=== PATIENT | female | born 1960 | race African-American/Black ===

== ENCOUNTER 2018-09-05 09:15 | Emergency (ER) | payer SELFPAY ==
[2018-09-05 09:36] LABS: #Eosinphils 0.1 thou/uL (0.0-0.7); #Lymphocytes 1.6 thou/uL (1.20-3.40); #Monocytes 0.4 thou/uL (0.11-0.59); #Neutrophils 5.4 thou/uL (1.40-6.50); %Eosinophils 0.8 % (0.0-10.0); %Lymphocytes 21.5 % (21.0-51.0); %Monocytes 5.4 % (0.0-10.0); %Neutrophils 72.4 % (42.0-75.0); Hemoglobin 10.1 g/dL (12.0-16.0); Mean Corpuscular HGB CONC 33.5 g/dL (32.0-36.0); Mean Corpuscular Hemoglobin 29.5 pg (27.0-31.0); Mean Corpuscular Volume 88.1 fL (78.0-98.0); Mean Platelet Volume 8.1 fL (7.4-10.4); Platelet Count 333 thou/uL (130-400); RBC Distribution Width 11.7 % (11.5-14.5); Red Blood Cell (RBC) Count 3.43 mill/uL (4.20-5.40); White Blood Cell (WBC) Count 7.4 thou/uL (4.8-10.8)
[2018-09-05 09:45] LABS: Base Excess-Venous -1.1 mmol/L (-2.0 to 3.0); Bicarbonate (HCO3v) 24.7 mmol/L (22.0-28.0); CO2 Tension (PvCO2) 44.4 mmHg (40.0-50.0); Calcium, Ionized 1.13 mmol/L (See Comments:); Chloride 96 mmol/L (98-107); Hemoglobin - Calc 10.8 g/dL (12.0-16.0); Potassium 3.9 mmol/L (3.5-5.1); Sodium 134 mmol/L (138-145); vO2 Saturation-calc 83.8 % (60.0-85.0)
[2018-09-05 09:59] LABS: Magnesium 1.9 mg/dL (1.6-2.6); Phosphorus 2.9 mg/dL (2.3-4.7)
[2018-09-05 10:05] LABS: ALT (SGPT) 13 U/L (8-55); AST (SGOT) 8 U/L (5-34); Albumin 3.8 g/dL (3.5-5.0); Alkaline Phosphatase 127 U/L (40-150); Anion Gap 15 mmol/L (10-20); BUN (Urea Nitrogen) 19 mg/dL (9.8-20.1); Bilirubin, Total 0.3 mg/dL (0.2-1.2); Calc. Creatinine Clearance 0 mL/min (70-130); Calcium 9.1 mg/dL (7.8-10.44); Carbon Dioxide 23 mmol/L (22-29); Chloride 99 mmol/L (98-107); Estimated GFR-MDRD 56; Globulin 2.9 g/dL (2.4-3.5); Potassium 4.1 mmol/L (3.5-5.1); Protein, Total 6.7 g/dL (6.0-8.3); Sodium 133 mmol/L (136-145)
[2018-09-05 10:11] LABS: Glucose 584 mg/dL (70-105)
[2018-09-05] MEDS ORDERED: Insulin Regular 300 UNITS/3 ML VIAL ONE (10:25)
== END 2018-09-05 12:00 | disposition home or self-care (01) ==
LOC: ERS 09:15
DX: E11.65 Type 2 diabetes mellitus with hyperglycemia (principal); I10 Essential (primary) hypertension; F31.9 Bipolar disorder, unspecified; F20.9 Schizophrenia, unspecified; Z87.891 Personal history of nicotine dependence; Z79.899 Other long term (current) drug therapy; Z79.84 Long term (current) use of oral hypoglycemic drugs
CPT/HCPCS: 36415; 36416; 80053; 82010; 82330; 82803; 83735; 84100; 85025; 96361; 96374; J1815

== ENCOUNTER 2018-09-05 20:38 | Emergency (ER) | payer SELFPAY ==
[2018-09-06 01:44] LABS: #Eosinphils 0.1 thou/uL (0.0-0.7); #Lymphocytes 2.7 thou/uL (1.20-3.40); #Monocytes 0.5 thou/uL (0.11-0.59); #Neutrophils 6.7 thou/uL (1.40-6.50); %Basophils 0.3 % (0.0-1.0); %Eosinophils 0.9 % (0.0-10.0); %Lymphocytes 26.8 % (21.0-51.0); %Monocytes 4.9 % (0.0-10.0); %Neutrophils 67.1 % (42.0-75.0); Hemoglobin 10.7 g/dL (12.0-16.0); Mean Corpuscular HGB CONC 33.6 g/dL (32.0-36.0); Mean Corpuscular Hemoglobin 29.6 pg (27.0-31.0); Mean Platelet Volume 8.4 fL (7.4-10.4); Platelet Count 397 thou/uL (130-400); RBC Distribution Width 11.8 % (11.5-14.5); Red Blood Cell (RBC) Count 3.63 mill/uL (4.20-5.40)
[2018-09-06 02:04] LABS: ALT (SGPT) 15 U/L (8-55); AST (SGOT) 9 U/L (5-34); Albumin 4.2 g/dL (3.5-5.0); Alkaline Phosphatase 139 U/L (40-150); Anion Gap 15 mmol/L (10-20); BUN (Urea Nitrogen) 17 mg/dL (9.8-20.1); Bilirubin, Total 0.3 mg/dL (0.2-1.2); Calc. Creatinine Clearance 0 mL/min (70-130); Calcium 9.8 mg/dL (7.8-10.44); Carbon Dioxide 25 mmol/L (22-29); Chloride 101 mmol/L (98-107); Estimated GFR-MDRD 69; Globulin 3.7 g/dL (2.4-3.5); Glucose 476 mg/dL (70-105); Potassium 3.8 mmol/L (3.5-5.1); Protein, Total 7.9 g/dL (6.0-8.3); Sodium 137 mmol/L (136-145)
== END 2018-09-06 02:29 | disposition home or self-care (01) ==
LOC: ERS 20:38
DX: E11.65 Type 2 diabetes mellitus with hyperglycemia (principal); F31.9 Bipolar disorder, unspecified; F20.9 Schizophrenia, unspecified; Z87.891 Personal history of nicotine dependence
CPT/HCPCS: 36415; 36416; 80053; 85025; 99284

== ENCOUNTER 2018-09-10 12:51 | Emergency (ER) | payer SELFPAY ==
[2018-09-10 14:43] LABS: #Lymphocytes 2.4 thou/uL (1.20-3.40); #Monocytes 0.6 thou/uL (0.11-0.59); #Neutrophils 8.9 thou/uL (1.40-6.50); %Basophils 0.4 % (0.0-1.0); %Eosinophils 0.2 % (0.0-10.0); %Lymphocytes 19.8 % (21.0-51.0); %Monocytes 5.3 % (0.0-10.0); %Neutrophils 74.3 % (42.0-75.0); Mean Corpuscular HGB CONC 34.1 g/dL (32.0-36.0); Mean Corpuscular Hemoglobin 29.5 pg (27.0-31.0); Mean Corpuscular Volume 86.4 fL (78.0-98.0); Mean Platelet Volume 8.7 fL (7.4-10.4); Platelet Count 372 thou/uL (130-400); RBC Distribution Width 11.9 % (11.5-14.5); Red Blood Cell (RBC) Count 3.38 mill/uL (4.20-5.40); White Blood Cell (WBC) Count 11.9 thou/uL (4.8-10.8)
[2018-09-10 14:46] LABS: Base Excess-Venous -0.8 mmol/L (-2.0 to 3.0); Bicarbonate (HCO3v) 23.4 mmol/L (22.0-28.0); CO2 Tension (PvCO2) 36.2 mmHg (40.0-50.0); Calcium, Ionized 1.03 mmol/L (See Comments:); Chloride 97 mmol/L (98-107); Hemoglobin - Calc 10.5 g/dL (12.0-16.0); Potassium 4.1 mmol/L (3.5-5.1); Sodium 132 mmol/L (138-145); T. Carbon Dioxide 24.5 mmol/L (22.0-28.0); vO2 Saturation-calc 88.2 % (60.0-85.0)
[2018-09-10] MEDS ORDERED: Ketorolac Tromethamine 30 MG/ML VIAL ONE (14:55)
[2018-09-10 15:05] LABS: ALT (SGPT) 12 U/L (8-55); AST (SGOT) 11 U/L (5-34); Albumin 3.9 g/dL (3.5-5.0); Alkaline Phosphatase 111 U/L (40-150); Anion Gap 20 mmol/L (10-20); BUN (Urea Nitrogen) 32 mg/dL (9.8-20.1); Bilirubin, Total 0.4 mg/dL (0.2-1.2); CK (CPK) 76 U/L (29-168); Calc. Creatinine Clearance 0 mL/min (70-130); Calcium 9.3 mg/dL (7.8-10.44); Carbon Dioxide 21 mmol/L (22-29); Chloride 96 mmol/L (98-107); Estimated GFR-MDRD 43; Globulin 3.5 g/dL (2.4-3.5); Glucose 458 mg/dL (70-105); Protein, Total 7.4 g/dL (6.0-8.3); Sodium 133 mmol/L (136-145)
[2018-09-10 16:03] LABS: Bilirubin Negative (Negative); Blood, Urine Negative (Negative); Clarity Clear (Clear); Glucose, Urine (Dipstick) 500 mg/dL (Negative); Leukocyte 250 Leu/uL (Negative); Nitrite Negative (Negative); Protein, Urine (Dipstick) Negative (Neg-Trace); RBC/HPF 0-3 HPF (0-3); Squamous Epithelial 0-3 HPF (0-3); Urobilinogen Normal mg/dL (Less than 2)
[2018-09-10 16:04] LABS: Bacteria/HPF None Seen HPF (None Seen); Renal Epithelial 0-3 HPF (None Seen); Transitional Epithelial 0-3 HPF (None Seen)
[2018-09-10 16:12] LABS: Amphetamine Not Detected (NotDetected); Barbiturates Screen Not Detected (NotDetected); Benzodiazepine Screen Detected (NotDetected); Cocaine Metabolite Screen Not Detected (NotDetected); Medtox Control Line Valid? VALID (VALID); Medtox Reader # READER 4; Methadone Not Detected (NotDetected); Methamphetamine Not Detected (NotDetected); Opiate Screen Not Detected (NotDetected); Oxycodone Screen Not Detected (NotDetected); Phencyclidine (PCP) Not Detected (NotDetected); THC/Cannabinoid Screen Not Detected (NotDetected); Tricyclic Screen Not Detected (NotDetected)
[2018-09-10] MEDS ORDERED: Insulin Regular 300 UNITS/3 ML VIAL ONE (16:53)
== END 2018-09-10 18:36 | disposition home or self-care (01) ==
LOC: ERS 12:51
DX: E11.65 Type 2 diabetes mellitus with hyperglycemia (principal); R51 Headache; I10 Essential (primary) hypertension; E78.00 Pure hypercholesterolemia, unspecified; J44.9 Chronic obstructive pulmonary disease, unspecified; F31.9 Bipolar disorder, unspecified; F20.9 Schizophrenia, unspecified; Z87.891 Personal history of nicotine dependence
CPT/HCPCS: 36416; 80053; 80306; 81003; 81015; 82330; 82550; 82803; 83930; 84484; 85025; 87086; 93005; 96361; 96374; 96375; J1815; J1885

== ENCOUNTER 2018-09-14 11:48 | Emergency (ER) | payer SELFPAY ==
[2018-09-14] MEDS ORDERED: Ketorolac Tromethamine 30 MG/ML VIAL ONE (13:12)
[2018-09-14 13:20] LABS: #Lymphocytes 2.8 thou/uL (1.20-3.40); #Monocytes 0.6 thou/uL (0.11-0.59); #Neutrophils 8.2 thou/uL (1.40-6.50); %Basophils 0.2 % (0.0-1.0); %Eosinophils 0.4 % (0.0-10.0); %Monocytes 4.9 % (0.0-10.0); %Neutrophils 70.4 % (42.0-75.0); Hemoglobin 9.7 g/dL (12.0-16.0); Mean Corpuscular HGB CONC 32.2 g/dL (32.0-36.0); Mean Corpuscular Volume 86.9 fL (78.0-98.0); Mean Platelet Volume 8.2 fL (7.4-10.4); Platelet Count 375 thou/uL (130-400); RBC Distribution Width 11.8 % (11.5-14.5); Red Blood Cell (RBC) Count 3.45 mill/uL (4.20-5.40); White Blood Cell (WBC) Count 11.7 thou/uL (4.8-10.8)
[2018-09-14 13:40] LABS: ALT (SGPT) 14 U/L (8-55); AST (SGOT) 13 U/L (5-34); Albumin 4.1 g/dL (3.5-5.0); Alkaline Phosphatase 109 U/L (40-150); Anion Gap 17 mmol/L (10-20); BUN (Urea Nitrogen) 25 mg/dL (9.8-20.1); Bilirubin, Total 0.4 mg/dL (0.2-1.2); CK (CPK) 106 U/L (29-168); Calc. Creatinine Clearance 0 mL/min (70-130); Calcium 9.9 mg/dL (7.8-10.44); Carbon Dioxide 25 mmol/L (22-29); Chloride 99 mmol/L (98-107); Estimated GFR-MDRD 56; Globulin 3.5 g/dL (2.4-3.5); Glucose 183 mg/dL (70-105); Lipase 24 U/L (8-78); Potassium 3.6 mmol/L (3.5-5.1); Protein, Total 7.6 g/dL (6.0-8.3); Sodium 137 mmol/L (136-145)
== END 2018-09-14 14:39 | disposition home or self-care (01) ==
LOC: ERS 11:48
DX: E11.65 Type 2 diabetes mellitus with hyperglycemia (principal); R42 Dizziness and giddiness; I10 Essential (primary) hypertension; J44.9 Chronic obstructive pulmonary disease, unspecified; E78.00 Pure hypercholesterolemia, unspecified; F31.9 Bipolar disorder, unspecified; F20.9 Schizophrenia, unspecified; Z87.891 Personal history of nicotine dependence; Z79.899 Other long term (current) drug therapy; Z79.82 Long term (current) use of aspirin; Z79.84 Long term (current) use of oral hypoglycemic drugs
CPT/HCPCS: 36416; 80053; 82550; 83690; 83930; 85025; 93005; 96374; J1885

== ENCOUNTER 2019-09-08 13:30 | Observation (INO) | payer SELFPAY ==
--- NOTE | 2019-09-08 14:07 | RAD ---
XR Chest 1 View Portable HISTORY: Chest pain COMPARISON: None FINDINGS: The heart size is enlarged. The lungs are well expanded without focal areas of consolidatio n, pneumothorax or pleural effusions. There are degenerative changes in the spine. IMPRESSION: Cardiomegaly
[2019-09-08 14:19] LABS: #Basophils 0.1 thou/uL (0.0-0.2); #Eosinphils 0.1 thou/uL (0.0-0.7); #Lymphocytes 2.1 thou/uL (1.20-3.40); #Monocytes 0.7 thou/uL (0.11-0.59); #Neutrophils 4.1 thou/uL (1.40-6.50); %Basophils 0.7 % (0.0-1.0); %Eosinophils 0.8 % (0.0-10.0); %Lymphocytes 29.6 % (21.0-51.0); %Monocytes 9.9 % (0.0-10.0); %Neutrophils 58.9 % (42.0-75.0); Hemoglobin 10.5 g/dL (12.0-16.0); Mean Corpuscular HGB CONC 33.9 g/dL (32.0-36.0); Mean Corpuscular Hemoglobin 30.9 pg (27.0-31.0); Mean Corpuscular Volume 91.1 fL (78.0-98.0); Mean Platelet Volume 7.9 fL (7.4-10.4); Platelet Count 296 thou/uL (130-400); RBC Distribution Width 11.8 % (11.5-14.5); Red Blood Cell (RBC) Count 3.41 mill/uL (4.20-5.40)
[2019-09-08 14:41] LABS: Anion Gap 16 mmol/L (10-20); BUN (Urea Nitrogen) 19 mg/dL (9.8-20.1); Calc. Creatinine Clearance 0 mL/min (70-130); Calcium 8.8 mg/dL (7.8-10.44); Carbon Dioxide 22 mmol/L (22-29); Chloride 105 mmol/L (98-107); Estimated GFR-MDRD 82; Glucose 117 mg/dL (70-105); Potassium 3.5 mmol/L (3.5-5.1); Sodium 139 mmol/L (136-145)
[2019-09-08 14:42] LABS: ALT (SGPT) 18 U/L (8-55); AST (SGOT) 14 U/L (5-34); Alkaline Phosphatase 92 U/L (40-110); Bilirubin, Total 0.3 mg/dL (0.2-1.2)
[2019-09-08 15:39] LABS: Bilirubin Negative (Negative); Blood, Urine Negative (Negative); Glucose, Urine (Dipstick) Negative (Negative); Ketone, Urine Negative (Negative); Leukocyte Trace (Negative); Nitrite Negative (Negative); Protein, Urine (Dipstick) Negative (Neg-Trace); Urobilinogen 0.2 mg/dL (Less than 2); pH, Urine 5.5 (5.0-9.0)
[2019-09-08 15:40] LABS: Clarity Clear (Clear)
[2019-09-08 15:53] LABS: Bacteria/HPF None Seen HPF (None Seen); RBC/HPF 0-3 HPF (0-3); WBC/HPF 0-3 HPF (0-3)
[2019-09-08 16:59] LABS: Magnesium 1.9 mg/dL (1.6-2.6)
[2019-09-08 17:34] VITALS: BMI 30.5
[2019-09-08 17:36] LABS: Troponin I 0.016 ng/mL (< 0.028)
[2019-09-08] MEDS ORDERED: HumaLOG 300 UNITS/3 ML VIAL SC PRN ×2 (17:45)
[2019-09-08] MEDS ORDERED: Dextrose 50% Abboject 50 ML SYRINGE SLOW IVP PRN (17:45)
[2019-09-08] MEDS ORDERED: Dextrose 5% in Water 1,000 ML IV PRN (17:45)
[2019-09-08 18:13] LABS: Amphetamine Not Detected (NotDetected); Barbiturates Screen Not Detected (NotDetected); Benzodiazepine Screen Not Detected (NotDetected); Cocaine Metabolite Screen Not Detected (NotDetected); Medtox Control Line Valid? VALID (VALID); Medtox Reader # READER 4; Methadone Not Detected (NotDetected); Methamphetamine Not Detected (NotDetected); Opiate Screen Not Detected (NotDetected); Oxycodone Screen Not Detected (NotDetected); Phencyclidine (PCP) Not Detected (NotDetected); THC/Cannabinoid Screen Not Detected (NotDetected); Tricyclic Screen Not Detected (NotDetected)
[2019-09-08] MEDS: Metoprolol Tartrate 25 MG TAB PO SCH (20:44)
[2019-09-08] MEDS: levETIRAcetam 500 MG TAB PO SCH (20:44)
[2019-09-08] MEDS: risperiDONE 1 MG TAB PO SCH (20:46)
[2019-09-08] MEDS ORDERED: Atorvastatin Calcium 20 MG TAB PO SCH (21:00)
[2019-09-08 21:15] LABS: Troponin I 0.021 ng/mL (< 0.028)
[2019-09-08] MEDS: Acetaminophen 500 MG TAB PO PRN (21:31)
[2019-09-08] MEDS: Nitroglycerin 0.4 MG TAB (25 Tab Bottle) PO PRN ×3 (22:20→22:37)
--- NOTE | 2019-09-09 06:32 | HP ---
PRIMARY CARE PHYSICIAN: Out of town. CHIEF COMPLAINT: "I have chest pain." HISTORY OF PRESENT ILLNESS: The patient is a 59-year-old female with past medical history significant for diabetes and hypertension. Does have history of illicit drug use. She states that she has had left-sided chest pain underneath her left breast on and off since yesterday consistently. Chest pain will come and go, lasts for a few minutes and then will resolve. Denies shortness of breath, cough, fever, nausea, vomiting. Denies any increased leg swelling, urinary frequency, or burning. She states that she has had this pain since last year when she was first incarcerated, and she was prescribed nitroglycerin sublingual, but it now seems to be occurring more frequently. She currently lives in a [facility] in [facility]. She denies any medications that help her chest pain, but states that lying down does help. At times, she does have dizziness and headache with it. There is no difference with palpation or deep breathing in the pain intensity. Today in the ER, we performed lab work, EKG, and chest x-ray. EMS gave her one sublingual nitroglycerin on the way to the hospital, which she stated did not help her pain. PAST MEDICAL HISTORY: Diabetes mellitus type 2, hypertension, elevated cholesterol, COPD, chronic back pain, bipolar, schizophrenia and manic depression. PAST SURGICAL HISTORY: Hysterectomy. ALLERGIES: NO KNOWN DRUG ALLERGIES. MEDICATIONS: The patient is unable to recall her medications at this time. Will work with nursing to obtain accurate list. SOCIAL HISTORY: Per records, the patient currently lives in [facility] after being incarcerated. She is unemployed. She is a pack per day cigarette smoker for 25 years. She stated she drank a lot of alcohol prior to being incarcerated. She also used crack cocaine prior to being incarcerated, states she has not done any in approximately a year. FAMILY HISTORY: Mother has hypertension, CVA, diabetes. Father of colon cancer and history of hypertension. REVIEW OF SYSTEMS: All other review of systems are negative unless noted in the HPI. PHYSICAL EXAMINATION: VITAL SIGNS: Blood pressure 109/74, pulse 64, respiratory rate 20, temperature 98 oral, O2 saturation 97% on room air. GENERAL: Afebrile. Appears nontoxic. HEENT: Atraumatic, normocephalic. PERRLA. Extraocular muscles intact. No lymphadenopathy. Trachea midline. Normal range of motion of neck. RESPIRATORY: Breath sounds clear to auscultation bilaterally. No wheezing. No rhonchi or rales. CARDIOVASCULAR: Regular rate and rhythm. No murmurs, no gallops, no rubs. ABDOMEN: Slightly tender in the upper epigastric region. Normal bowel sounds. No guarding. EXTREMITIES: No cyanosis, no clubbing, no edema. NEUROLOGIC: Awake and alert. Moving all extremities. PSYCH: Normal affect. Normal behavior. LABORATORY DATA: White blood cell 7.0, hemoglobin 10.5, hematocrit 31.1, which appears to be near her baseline. Sodium 139, potassium 3.5, creatinine 0.86, GFR 82, glucose 117. Troponin, first is negative. BNP 59. IMPRESSION AND PLAN: 1. Chest pain. Monitor on telemetry overnight. Have a stress test ordered for the morning. Continue to trend troponins overnight. The patient will be started on 325mg aspirin. 2. Hypertension. Blood pressure is stable at this time. May need to start antihypertensive p.r.n. medications until home medications can be reconciled. 3. Diabetes mellitus type 2. We will monitor a.c. and at bedtime Accu-Cheks and cover with sliding scale insulin. 4. Gastrointestinal and deep venous thrombosis prophylaxis added. 5. The patient wishes to be a full code. States her designated surrogate decision maker is her sister, Bossman Hanna. The patient has been discussed with Dr. Mancera. Job ID: [id number] MTDD
[2019-09-09] MEDS: levETIRAcetam 500 MG TAB PO SCH ×2 (07:20→20:30)
[2019-09-09] MEDS: Cyanocobalamin (Vitamin B-12) 1,000 MCG TAB PO SCH (07:20)
[2019-09-09] MEDS: FLUoxetine HCl 20 MG CAP PO SCH (07:20)
[2019-09-09] MEDS: Folic Acid 1 MG TAB PO SCH (07:20)
[2019-09-09] MEDS: Aspirin 325 mg Enteric Coated Tablet PO SCH (07:20)
[2019-09-09] MEDS ORDERED: metFORMIN 500 MG TAB PO SCH (08:00)
[2019-09-09] MEDS ORDERED: Regadenoson 0.4 MG/5 ML SYRINGE ONE (08:42)
[2019-09-09] MEDS: Amlodipine 10 MG TAB PO SCH (11:28)
[2019-09-09] MEDS: Metoprolol Tartrate 25 MG TAB PO SCH ×2 (11:29→20:30)
[2019-09-09] MEDS: Lisinopril 20 MG TAB PO SCH (11:32)
[2019-09-09] MEDS: Acetaminophen 500 MG TAB PO PRN ×2 (11:33→20:32)
--- NOTE | 2019-09-09 11:33 | NM ---
EXAM: CARDIAC SPECT HISTORY: Chest pain, COPD, hypertension, diabetes, dyslipidemia, smoker TECHNIQUE: A myocardial perfusion scan was performed using the single isotope 1 day protocol with asael hnetium 99m sestamibi. [10 mCi] was injected intravenously for the rest exam followed by 30 mCi for the stress study. Pharmacologic stress with Lexiscan was monitored and interpreted by Ellen. Arteaga, in nurse [facility] FINDINGS: Homogeneous tracer distribution is seen in the myocardial segments on stress and rest image s without fixed or reversible defects. The TID ratio measures 1.57 Gated SPECT LVEF: 91% Wall motion exam: Normal IMPRESSION: TID ratio is 1.57. Clinical relation is recommended.
[2019-09-09] MEDS ORDERED: Communication Order-Pharmacy FS SCH (18:15)
--- NOTE | 2019-09-09 18:36 | PDOC.EVN ---
Event Note - Event Note Event Note: Patient seen and examined for CP. Chart/Vitals/labs reviewed. CTA b/l. S1S2 +. Troponins negative. Will schedule stess test. I agree with the note. A/P per [employer].
[2019-09-09] MEDS: risperiDONE 1 MG TAB PO SCH (20:30)
[2019-09-09] MEDS ORDERED: Atorvastatin Calcium 40 MG TAB PO SCH (21:00)
[2019-09-09] MEDS: Nitroglycerin 0.4 MG TAB (25 Tab Bottle) PO PRN ×2 (21:26→21:32)
--- NOTE | 2019-09-09 22:36 | CON ---
DATE OF CONSULTATION: HISTORY OF PRESENT ILLNESS: Lyndsey Morley is a 59-year-old black female, who is currently a resident of [facility] for the last 3 months. She has complained of chest discomfort under her left breast. She described this as a very sharp, stabbing pain that would last a few seconds. The pain is somewhat pleuritic in nature and at times, she may have tenderness in the area. This usually starts when she is at rest. The pain seems to have become more frequent and she came to the emergency room for further evaluation. PAST MEDICAL HISTORY: Diabetes, hypertension, hypercholesterolemia, COPD, chronic back pain, bipolar, schizophrenic and manic depression. OPERATIONS: Hysterectomy. MEDICATIONS: 1. Amlodipine 10 mg daily. 2. Aspirin 81 daily. 3. Atorvastatin 20 at bedtime. 4. Fluoxetine 20 daily. 5. Motrin 600 mg b.i.d. 6. Lisinopril 40 daily. 7. Levetiracetam 500 mg b.i.d. 8. Metformin 500 q.a.m. 9. Metoprolol 25 b.i.d. 10. Nitroglycerin 0.4 p.r.n. 11. Risperdal 1 mg q.p.m. ALLERGIES: NONE. SOCIAL HISTORY: She smoked 1 to 2 packs per day, but stopped in January 2019 when she was incarcerated. She also drank a lot of alcohol prior to being incarcerated, but none since. She also used crack cocaine prior to being incarcerated. FAMILY HISTORY: Brother has had multiple coronary stents placement. REVIEW OF SYSTEMS: A 10-point review of systems is otherwise unremarkable. PHYSICAL EXAMINATION: VITAL SIGNS: Blood pressure 148/72 and pulse 66. HEENT: PERRL. NECK: Supple. CHEST: Clear. CARDIAC: S1 and S2 normal without any S3, S4, or murmurs. Carotid upstrokes normal without bruits. ABDOMEN: Normal bowel sounds without tenderness or organomegaly. The abdomen is obese. EXTREMITIES: Revealed no clubbing, cyanosis, or edema. NEUROLOGIC: Grossly intact. SKIN: Warm and dry. MUSCULOSKELETAL: Revealed palpable left chest tenderness that seemed to reproduce her pain. LABORATORY DATA: EKG reveals normal sinus rhythm with poor R-wave progression. She underwent adenosine Cardiolite testing, which revealed no evidence of ischemia or scar. However, the TID was elevated at 1.57. Hemoglobin 10.5, hematocrit 31.1 , and white count 7000. Cholesterol 172, triglycerides 91, HDL 58, and LDL 96. Troponin I is normal. BNP 59.0. Sodium 139, potassium 3.5, chloride 105, carbon dioxide 22, BUN 19, and creatinine 0.86. IMPRESSION: 1. Atypical chest discomfort, most consistent with chest wall pain. 2. No evidence of ischemia or fixed defect on Cardiolite; however, elevated TID in someone with multiple cardiac risk factors. 3. Hypertension. 4. Hypercholesterolemia under poor control with LDL of 96 in a diabetic. 5. Diabetes. 6. Positive family history. 7. Former smoker. PLAN: Atorvastatin will be increased to 40 mg to try to achieve an LDL of less than 70 in a diabetic. It was recommended she undergo cardiac catheterization with finding of elevated TID. Risks of catheterization were discussed with the patient including , myocardial infarction, dye reaction, vascular injury, CVA, transfusion, limb loss, renal loss, etc. Also risk of intervention with PTCA and stent placement discussed including , myocardial infarction, emergent CABG, restenosis, stent thrombosis, vessel perforation, etc. I am significantly concerned about her trying to get her medications going forward in that she just was released from [facility], is unemployed and is living in at [facility]. Therefore, I would place a bare-metal stent, so she would only have to take Plavix for 1 month. Job ID: [id number] MTDD
[2019-09-10] MEDS ORDERED: Sodium Chloride 0.9% 1,000 ML IV SCH ×2 (06:00→09:32)
[2019-09-10] MEDS: Folic Acid 1 MG TAB PO SCH (06:07)
[2019-09-10] MEDS: levETIRAcetam 500 MG TAB PO SCH (06:07)
[2019-09-10] MEDS: Aspirin 325 mg Enteric Coated Tablet PO SCH (06:07)
[2019-09-10] MEDS: FLUoxetine HCl 20 MG CAP PO SCH (06:07)
[2019-09-10] MEDS: Cyanocobalamin (Vitamin B-12) 1,000 MCG TAB PO SCH (06:08)
[2019-09-10] MEDS: Lisinopril 20 MG TAB PO SCH (06:08)
[2019-09-10] MEDS: Amlodipine 10 MG TAB PO SCH (06:08)
[2019-09-10] MEDS: Metoprolol Tartrate 25 MG TAB PO SCH (06:09)
[2019-09-10] MEDS: Acetaminophen 500 MG TAB PO PRN ×2 (06:14→13:25)
[2019-09-10] MEDS ORDERED: Heparin 10,000 UNITS/1 ML VIAL ONE (08:17)
[2019-09-10] MEDS ORDERED: Midazolam HCl 2 mg/2 ml Vial ONE (08:53)
[2019-09-10] MEDS ORDERED: Fentanyl 100 MCG/2 ML VIAL ONE (08:53)
[2019-09-10] MEDS ORDERED: Protamine Sulfate 50 MG/5 ML VIAL ONE (09:17)
[2019-09-10] MEDS ORDERED: Acetaminophen/Codeine 30-300mg Tablet PO PRN ×2 (09:29)
[2019-09-10] MEDS ORDERED: Nitroglycerin 0.4 MG TAB (25 Tab Bottle) SL PRN (09:29)
[2019-09-10] MEDS ORDERED: Sodium Chloride 0.9% 200 ML IV PRN (09:29)
--- NOTE | 2019-09-10 10:21 | PDOC.HOSPP ---
- Subjective Encounter Date: 09/09/19 Encounter Time: 15:00 Subjective: Patient seen and examined for CP. Intermittent CP. No syncope/palpitations. No new complaints. No overnight events - Objective Vital Signs & Weight: Vital Signs (12 hours) Temp Pulse Resp BP BP Pulse Ox 09/10/19 07:23 98.4 F 60 14 131/78 96 09/10/19 06:08 60 128/74 09/10/19 03:49 98.3 F 60 18 128/74 97 09/09/19 23:26 133/72 Weight Weight 146 lb 4.8 oz I&O: 09/09/19 09/10/19 09/11/19 06:59 06:59 06:59 Intake Total 320 560 Balance 320 560 Result Diagrams: 09/08/19 14:12 09/08/19 14:12 Additional Labs: Accuchecks 09/10/19 09/09/19 09/09/19 05:48 20:13 16:48 POC Glucose 123 H 163 H 124 H 09/09/19 09/09/19 11:48 05:38 POC Glucose 161 H 105 EKG Reviewed by me: Yes (Tele SR) Hospitalist ROS - Review of Systems Respiratory: denies: cough, dry, shortness of breath, hemoptysis, SOB with excertion, pleuritic pain, sputum, wheezing, other Cardiovascular: denies: chest pain, palpitations, orthopnea, paroxysmal noc. dyspnea, edema, light headedness, other - Medication Medications: Active Medications Generic Name Dose Route Start Last Admin Trade Name Freq PRN Reason Stop Dose Admin Acetaminophen 500 mg 09/08/19 20:54 09/10/19 06:14 Tylenol PO 500 mg Q6H PRN Administration Pain Amlodipine Besylate 10 mg 09/09/19 09:00 09/10/19 06:08 Norvasc PO 10 mg DAILY MERCED Administration Aspirin 325 mg 09/09/19 09:00 09/10/19 06:07 Ecotrin PO 325 mg DAILY MERCED Administration Atorvastatin Calcium 40 mg 09/09/19 21:00 09/09/19 20:30 Lipitor PO 40 mg HS MERCED Administration Cyanocobalamin 1,000 mcg 09/09/19 09:00 09/10/19 06:08 Vitamin B-12 PO 1,000 mcg DAILY MERCED Administration Fluoxetine HCl 20 mg 09/09/19 09:00 09/10/19 06:07 Prozac PO 20 mg DAILY MERCED Administration Folic Acid 1 mg 09/09/19 09:00 09/10/19 06:07 Folvite PO 1 mg DAILY MERCED Administration Sodium Chloride 1,000 mls @ 125 mls/hr 09/10/19 09:32 09/10/19 09:54 Normal Saline 0.9% IV 09/10/19 15:30 1,000 mls .Q8H MERCED Administration Levetiracetam 500 mg 09/08/19 21:00 09/10/19 06:07 Keppra PO 500 mg BID MERCED Administration Lisinopril 40 mg 09/09/19 09:00 09/10/19 06:08 Zestril PO 40 mg DAILY MERCED Administration Metoprolol Tartrate 25 mg 09/08/19 21:00 09/10/19 06:09 Lopressor PO 25 mg BID MERCED Administration Risperidone 1 mg 09/08/19 21:00 09/09/19 20:30 Risperidone PO 1 mg QPM MERCED Administration - Exam General Appearance: NAD Heart: RRR, no gallops Respiratory: no wheezes, no ronchi Gastrointestinal: non-tender, non-distended Extremities: no cyanosis Neurological: no new deficit Hosp A/P - Plan DVT proph w/SCDs CP Abnormal CP HTN DM2 HLD PLAn: Cont ASA cont Metoprolol Cont Statins Consult Cardiology
[2019-09-10] MEDS ORDERED: Iopamidol 370 76% 50 ML VIAL FS ONE (11:19)
[2019-09-10] MEDS ORDERED: Iopamidol 370 76% 100 ML VIAL ONE (11:19)
[2019-09-10 15:46] VITALS: BP 119/60; TEMP 98.6
--- NOTE | 2019-09-10 16:56 | DIS ---
DATE OF ADMISSION: 09/08/2019 DATE OF DISCHARGE: 09/10/2019 DISCHARGE DISPOSITION: Home. FOLLOWUP: 1. Follow up with primary care physician at [facility] in 1 week. 2. Follow up with Cardiology, Dr. Nesbitt, in 3 to 4 weeks. ALLERGIES: NO KNOWN DRUG ALLERGIES. DISCHARGE MEDICATION: Lipitor dose was increased to 40 mg at bedtime. The patient was advised to restart metformin after 2 days. All other home medications were left unchanged. The patient was advised to take 81 mg aspirin. BRIEF HOSPITAL COURSE: The patient is a 59-year-old female with hypertension, diabetes mellitus type 2 and hyperlipidemia, presented to the emergency room with chest discomfort. Please refer to the history and physical for further details. The patient was admitted to the hospital with a diagnosis of chest discomfort, rule out acute coronary syndrome. Her serial troponins were negative. She underwent a Cardiolite stress test, that showed elevated TID of 1.57. She underwent cardiac catheterization earlier today, that showed 70% lesion in the RCA, 50% lesion in the mid LAD, 20% lesion in the proximal LAD, and 20% lesion in the proximal RCA. Lifestyle modification was emphasized. Statin dose was increased. The patient has been cleared by Cardiology for discharge. FINAL DIAGNOSES: 1. Chest discomfort. 2. Abnormal stress test. 3. Coronary artery disease. 4. Hypertension. 5. Diabetes mellitus, type 2. 6. Hyperlipidemia. Her fasting lipid profile showed LDL of 96, cholesterol 172, and triglyceride 91 with HDL of 58. 7. Schizophrenia. The patient understands the above plan of care. Job ID: [id number]
[2019-09-12] MEDS ORDERED: metFORMIN 500 MG TAB PO SCH (08:00)
--- NOTE | 2019-09-13 10:06 | EKG ---
Test Reason : STAT Blood Pressure : / mmHG Vent. Rate : 067 BPM Atrial Rate : 067 BPM P-R Int : 164 ms QRS Dur : 070 ms QT Int : 390 ms P-R-T Axes : 046 012 047 degrees QTc Int : 412 ms Normal sinus rhythm with sinus arrhythmia Normal ECG When compared with ECG of 14-SEP-2018 13:33, No significant change was found Confirmed by FLORIAN AMES (2) on 09/13/2019 10:05:52 AM Referred By: YO Confirmed By:FLORIAN AMES
== END 2019-09-10 17:09 | disposition home or self-care (01) ==
LOC: ERS 13:30 → 2NO 15:36
PROVIDERS: ADMIT Internal Medicine; ATTEND Internal Medicine
PROC: 4A023N7 Measurement of Cardiac Sampling and Pressure, Left Heart, Percutaneous Approach (ICD-10-PCS; principal; 2019-09-10)
PROC: B2111ZZ Fluoroscopy of Multiple Coronary Arteries using Low Osmolar Contrast (ICD-10-PCS; 2019-09-10)
DX: I25.10 Atherosclerotic heart disease of native coronary artery without angina pectoris (principal); R07.89 Other chest pain; I10 Essential (primary) hypertension; E11.9 Type 2 diabetes mellitus without complications; E78.5 Hyperlipidemia, unspecified; F20.9 Schizophrenia, unspecified; J44.9 Chronic obstructive pulmonary disease, unspecified; F31.9 Bipolar disorder, unspecified; E78.00 Pure hypercholesterolemia, unspecified; Z79.82 Long term (current) use of aspirin; Z79.84 Long term (current) use of oral hypoglycemic drugs; Z79.899 Other long term (current) drug therapy; Z87.891 Personal history of nicotine dependence; Z82.49 Family history of ischemic heart disease and other diseases of the circulatory system
CPT/HCPCS: 36415; 36416; 71045; 78452; 80053; 80061; 80306; 81003; 81015; 82728; 83540; 83550; 83735; 83880; 84484; 85025; 85347; 93005; 93010; 93017; 93458; 94760; 99152; 99153; G0378; J1644; J2250; J2720; J2785; J3010; Q9967

== ENCOUNTER 2019-09-14 06:13 | Emergency (ER) | payer SELFPAY ==
[2019-09-14 07:01] LABS: #Eosinphils 0.1 thou/uL (0.0-0.7); #Lymphocytes 1.2 thou/uL (1.20-3.40); #Monocytes 0.7 thou/uL (0.11-0.59); #Neutrophils 4.9 thou/uL (1.40-6.50); %Basophils 0.2 % (0.0-1.0); %Eosinophils 0.9 % (0.0-10.0); %Lymphocytes 17.7 % (21.0-51.0); %Monocytes 10.6 % (0.0-10.0); %Neutrophils 70.6 % (42.0-75.0); Hemoglobin 10.4 g/dL (12.0-16.0); Mean Corpuscular HGB CONC 35.3 g/dL (32.0-36.0); Mean Corpuscular Hemoglobin 31.7 pg (27.0-31.0); Mean Platelet Volume 8.1 fL (7.4-10.4); Platelet Count 253 thou/uL (130-400); RBC Distribution Width 11.8 % (11.5-14.5); Red Blood Cell (RBC) Count 3.28 mill/uL (4.20-5.40)
[2019-09-14 07:13] LABS: INR-International Normal Ratio 0.9; PTT 26.9 sec (22.9-36.1); Prothrombin Time 12.1 sec (12.0-14.7)
[2019-09-14 07:20] LABS: ALT (SGPT) 19 U/L (8-55); AST (SGOT) 12 U/L (5-34); Albumin 4.1 g/dL (3.5-5.0); Alkaline Phosphatase 103 U/L (40-110); Anion Gap 13 mmol/L (10-20); BUN (Urea Nitrogen) 20 mg/dL (9.8-20.1); Bilirubin, Total 0.4 mg/dL (0.2-1.2); Calc. Creatinine Clearance 0 mL/min (70-130); Calcium 8.9 mg/dL (7.8-10.44); Carbon Dioxide 25 mmol/L (22-29); Chloride 107 mmol/L (98-107); Estimated GFR-MDRD Greater than 90; Globulin 3.3 g/dL (2.4-3.5); Glucose 120 mg/dL (70-105); Potassium 3.7 mmol/L (3.5-5.1); Protein, Total 7.4 g/dL (6.0-8.3); Sodium 141 mmol/L (136-145)
[2019-09-14] MEDS ORDERED: Ketorolac Tromethamine 30 MG/ML VIAL ONE (07:22)
[2019-09-14] MEDS ORDERED: Nitroglycerin 2% Ointment 1 INCH/1 GM Packet ONE (07:22)
--- NOTE | 2019-09-14 07:37 | RAD ---
Chest one view HISTORY: Chest pain. COMPARISON: 09/08/2019. FINDINGS: Cardiac silhouette is magnified and upper limits of normal in size. Probable pericardial ca lcification over the left upper margin. Mediastinum is midline. Pulmonary vasculature are unremarkable. Calcified granulomata are consistent with healed granulomatous disease. No lobar consolidation or dinorah dence of pneumothorax. IMPRESSION : Chronic-type findings are stable. No active cardiopulmonary abnormalities are demonstrated.
[2019-09-14 09:32] LABS: Troponin I Less than 0.010 ng/mL (< 0.028)
== END 2019-09-14 10:15 | disposition home or self-care (01) ==
LOC: ERS 06:13
DX: R07.89 Other chest pain (principal); I10 Essential (primary) hypertension; E78.00 Pure hypercholesterolemia, unspecified; J44.9 Chronic obstructive pulmonary disease, unspecified; G89.29 Other chronic pain; F31.9 Bipolar disorder, unspecified; F20.9 Schizophrenia, unspecified; E11.9 Type 2 diabetes mellitus without complications; Z79.82 Long term (current) use of aspirin; Z79.899 Other long term (current) drug therapy; Z79.84 Long term (current) use of oral hypoglycemic drugs
CPT/HCPCS: 36415; 71045; 80053; 82550; 83880; 84484; 85025; 85379; 85610; 85730; 93005; 96361; 96374; J1885

== ENCOUNTER 2019-10-11 11:23 | Emergency (ER) | payer SELFPAY | END 2019-10-11 12:10 | disposition home or self-care (01) | LOC: ERS 11:23 | DX: I10 Essential (primary) hypertension (principal); Z76.0 Encounter for issue of repeat prescription | CPT/HCPCS: 99281 ==

== ENCOUNTER 2019-11-02 11:46 | Emergency (ER) | payer OTHER, SELFPAY ==
[2019-11-02] MEDS ORDERED: Nitroglycerin 0.4 MG TAB 1 EACH ONE (12:00)
[2019-11-02] MEDS ORDERED: Aspirin Chewable 81 MG TAB ONE (12:00)
--- NOTE | 2019-11-02 12:19 | RAD ---
Exam: Chest one view HISTORY:Chest pain, x3 days Comparison: 09/14/2019 FINDINGS: Cardiac silhouette:Cardiomegaly Aorta: Unremarkable Pulmonary vessels: Normal Costophrenic angles: Clear LUNGS: No masses or consolidation. Pneumothorax: None Osseous abnormalities: None IMPRESSION: Cardiomegaly, without evidence of congestive heart failure
[2019-11-02 12:35] LABS: #Lymphocytes 2.1 thou/uL (1.20-3.40); #Monocytes 0.5 thou/uL (0.11-0.59); #Neutrophils 4.6 thou/uL (1.40-6.50); %Basophils 0.1 % (0.0-1.0); %Eosinophils 0.6 % (0.0-10.0); %Lymphocytes 28.8 % (21.0-51.0); %Monocytes 6.6 % (0.0-10.0); %Neutrophils 63.9 % (42.0-75.0); Hemoglobin 10.9 g/dL (12.0-16.0); Mean Corpuscular HGB CONC 32.4 g/dL (32.0-36.0); Mean Corpuscular Hemoglobin 29.9 pg (27.0-31.0); Mean Corpuscular Volume 92.2 fL (78.0-98.0); Mean Platelet Volume 8.3 fL (7.4-10.4); Platelet Count 302 thou/uL (130-400); RBC Distribution Width 12.1 % (11.5-14.5); Red Blood Cell (RBC) Count 3.63 mill/uL (4.20-5.40); White Blood Cell (WBC) Count 7.2 thou/uL (4.8-10.8)
[2019-11-02 13:01] LABS: ALT (SGPT) 15 U/L (8-55); AST (SGOT) 15 U/L (5-34); Albumin 4.2 g/dL (3.5-5.0); Alkaline Phosphatase 103 U/L (40-110); Anion Gap 11 mmol/L (10-20); BUN (Urea Nitrogen) 13 mg/dL (9.8-20.1); Bilirubin, Total 0.4 mg/dL (0.2-1.2); Calc. Creatinine Clearance 0 mL/min (70-130); Carbon Dioxide 27 mmol/L (22-29); Chloride 104 mmol/L (98-107); Estimated GFR-MDRD Greater than 90; Globulin 3.3 g/dL (2.4-3.5); Glucose 80 mg/dL (70-105); Protein, Total 7.5 g/dL (6.0-8.3); Sodium 138 mmol/L (136-145)
[2019-11-02 16:13] LABS: Troponin I Less than 0.010 ng/mL (< 0.028)
[2019-11-02] MEDS ORDERED: Acetaminophen 500 MG TAB ONE (16:17)
[2019-11-02] MEDS ORDERED: Amlodipine 5 MG TAB ONE (16:17)
[2019-11-02 18:29] LABS: SARS-CoV-2 MS2 Positive; SARS-CoV-2 N Gene Negative; SARS-CoV-2 S Gene Negative; SARS-CoV-2 by NAA Not Detected (NotDetected); SARS-CoV-2 orf1ab Negative
== END 2019-11-02 17:19 | disposition home or self-care (01) ==
LOC: ERS 11:46
DX: R07.9 Chest pain, unspecified (principal); I10 Essential (primary) hypertension; E11.9 Type 2 diabetes mellitus without complications; E78.00 Pure hypercholesterolemia, unspecified; J44.9 Chronic obstructive pulmonary disease, unspecified; F31.9 Bipolar disorder, unspecified; F20.9 Schizophrenia, unspecified; Z87.891 Personal history of nicotine dependence; Z79.899 Other long term (current) drug therapy
CPT/HCPCS: 36415; 71045; 80053; 84484; 85025; 87635; 93005; U0003